=== PATIENT | female | born 1975 ===

== ENCOUNTER 2022-10-20 16:17 | Inpatient (IN) ==
[~2022-10-20 16:17] MED LIST: HEPARIN 5,000 UNIT/1 ML VIAL ONE; MIDAZOLAM 2 MG/2 ML VIAL ONE; fentaNYL 100 MCG/2 ML VIAL ONE
[2022-10-20 17:03] LABS: Basophils % 0.4 % (0.0-0.8); Eosinophils % 0.4 % (0.00-10.9); Hematocrit 32.9 VOL% (35.7-47.0); Hemoglobin 11.1 GM/DL (12.0-16.0); Immature Granulocytes % 0.5 %; Immature Granulocytes Absolute 0.04 #; Lymphocytes # 1.7 10*3/uL (1.4-4.0); Lymphocytes % 22.5 % (21.3-54.2); Mean Corpuscular HGB Conc 33.7 GM/DL (32-36); Mean Corpuscular Volume 89.4 FL (87-102); Mean Platelet Volume 9.1 FL (9.6-12.0); Monocytes # 0.7 10*3/uL (0.11-0.8); Monocytes % 9.2 % (1.7-12.7); Platelet Count 355 T/CUMM (130-400); Red Blood Count 3.68 MC/CUMM (3.8-5.5); Red Cell Distribution Width 12.2 % (9.3-17.3)
[2022-10-20 17:24] LABS: Albumin 3.4 G/DL (3.4-5.0); Bilirubin,Total 0.4 MG/DL (0.20-1.00); Calcium 7.9 MG/DL (8.5-10.1); Osmolality,Calculated 290.7 MOS/KG (273-304); Potassium 4.6 MMOL/L (3.5-5.1); Total Protein 7.5 G/DL (6.4-8.2)
[2022-10-20 17:31] LABS: High Sensitive Troponin I* 3419.6 ng/L (0-54)
[2022-10-20] MEDS ORDERED: ACETAMINOPHEN/CODEINE 300-30 MG TABLET PO PRN (17:53)
[2022-10-20] MEDS ORDERED: NITROGLYCERIN SL 0.4 MG TABLET SL PRN (17:53)
[2022-10-20] MEDS ORDERED: ONDANSETRON 4 MG/2 ML VIAL IV PRN (17:53)
[2022-10-20] MEDS ORDERED: GLUCAGON 1 MG VIAL IM PRN (17:56)
[2022-10-20] MEDS ORDERED: SODIUM CHLORIDE 0.9% 1,000 ML IV SCH (18:00)
[2022-10-20] MEDS ORDERED: DEXTROSE 10% 250 ML BAG IV PRN (18:13)
[2022-10-20] MEDS: MORPHINE 2 MG/1 ML SYRINGE IV PRN ×2 (18:24→23:51)
[2022-10-20] MEDS: INSULIN REGULAR 100 UNIT/ML SUBCUT SCH (18:25)
[2022-10-20] MEDS ORDERED: ZALEPLON 5 MG CAPSULE PO PRN (21:00)
[2022-10-20] MEDS: TICAGRELOR 90 MG TABLET PO SCH (21:24)
[2022-10-20] MEDS: ROSUVASTATIN 20 MG TABLET PO SCH (21:24)
[2022-10-20] MEDS: METOPROLOL TARTRATE 50 MG TABLET PO SCH (23:50)
[2022-10-21 05:55] LABS: Basophils % 0.3 % (0.0-0.8); Eosinophils # 0.1 10*3/uL (0.0-0.87); Eosinophils % 0.8 % (0.00-10.9); Hematocrit 30.8 VOL% (35.7-47.0); Hemoglobin 10.3 GM/DL (12.0-16.0); Immature Granulocytes % 0.8 %; Immature Granulocytes Absolute 0.06 #; Lymphocytes # 0.9 10*3/uL (1.4-4.0); Lymphocytes % 11.2 % (21.3-54.2); Mean Corpuscular HGB Conc 33.4 GM/DL (32-36); Mean Corpuscular Volume 90.3 FL (87-102); Mean Platelet Volume 9.1 FL (9.6-12.0); Monocytes # 0.9 10*3/uL (0.11-0.8); Monocytes % 11.2 % (1.7-12.7); Neutrophils % 75.7 % (38.7-73.9); Red Blood Count 3.41 MC/CUMM (3.8-5.5); Red Cell Distribution Width 12.6 % (9.3-17.3); White Blood Count 7.94 T/CUMM (4-12)
[2022-10-21 05:56] LABS: Platelet Count 278 T/CUMM (130-400)
[2022-10-21 06:07] LABS: Calcium 7.7 MG/DL (8.5-10.1); Potassium 4.4 MMOL/L (3.5-5.1); Risk Ratio 4.23
[2022-10-21] MEDS: ACETAMINOPHEN 325 MG TABLET PO PRN ×3 (06:35→23:08)
[2022-10-21] MEDS: INSULIN REGULAR 100 UNIT/ML SUBCUT SCH ×2 (06:41→16:28)
[2022-10-21] MEDS ORDERED: EPTIFIBATIDE 75 MG/100 ML BOTTLE IV ONE (06:41)
[2022-10-21] MEDS ORDERED: EPTIFIBATIDE 20,000 MCG/10 ML VIAL ONE (06:41)
[2022-10-21] MEDS ORDERED: HEPARIN/NACL 0.9% 2 UNITS/ML 2,000 UNIT/1,000 ML BAG IV ONE (06:41)
[2022-10-21] MEDS: PANTOPRAZOLE 40 MG TABLET PO SCH (08:00)
[2022-10-21] MEDS: METOPROLOL TARTRATE 50 MG TABLET PO SCH ×2 (08:01→22:27)
[2022-10-21] MEDS: TICAGRELOR 90 MG TABLET PO SCH ×2 (08:01→22:10)
[2022-10-21] MEDS: ASPIRIN EC 81 MG TABLET PO SCH (08:01)
[2022-10-21] MEDS: ENOXAPARIN 40 MG/0.4 ML SYRINGE SUBCUT SCH (08:02)
[2022-10-21] MEDS: ROSUVASTATIN 20 MG TABLET PO SCH (22:11)
[2022-10-22] MEDS: MORPHINE 2 MG/1 ML SYRINGE IV PRN (04:18)
[2022-10-22] MEDS: INSULIN REGULAR 100 UNIT/ML SUBCUT SCH (08:00)
[2022-10-22 08:39] LABS: Basophils % 0.2 % (0.0-0.8); Eosinophils # 0.2 10*3/uL (0.0-0.87); Eosinophils % 3.1 % (0.00-10.9); Hemoglobin 9.8 GM/DL (12.0-16.0); Immature Granulocytes % 0.3 %; Immature Granulocytes Absolute 0.02 #; Lymphocytes # 1.4 10*3/uL (1.4-4.0); Lymphocytes % 22.8 % (21.3-54.2); Mean Corpuscular HGB Conc 33.8 GM/DL (32-36); Mean Platelet Volume 8.9 FL (9.6-12.0); Monocytes # 0.7 10*3/uL (0.11-0.8); Monocytes % 11.3 % (1.7-12.7); Neutrophils % 62.3 % (38.7-73.9); Platelet Count 259 T/CUMM (130-400); Red Blood Count 3.26 MC/CUMM (3.8-5.5); Red Cell Distribution Width 12.5 % (9.3-17.3)
[2022-10-22 08:53] LABS: Calcium 8.3 MG/DL (8.5-10.1); Osmolality,Calculated 281.8 MOS/KG (273-304)
[2022-10-22] MEDS ORDERED: METOPROLOL TARTRATE 25 MG TABLET PO SCH (09:00)
[2022-10-22] MEDS: TICAGRELOR 90 MG TABLET PO SCH (11:58)
[2022-10-22] MEDS: PANTOPRAZOLE 40 MG TABLET PO SCH (11:58)
[2022-10-22] MEDS: ASPIRIN EC 81 MG TABLET PO SCH (11:58)
[2022-10-22] MEDS: ENOXAPARIN 40 MG/0.4 ML SYRINGE SUBCUT SCH (11:58)
[2022-10-22 13:58] VITALS: BP 124/75
== END 2022-10-22 14:02 | disposition home or self-care (01) | DRG 247 ==
LOC: N.CL 16:17 → N.ICU 17:50 → N.TELES 10-21 15:27
PROVIDERS: ADMIT Internal Medicine Cardiovascular Disease; ATTEND Internal Medicine Cardiovascular Disease
PROC: CLCCHCL (ICD-10-PCS; 2022-10-20 16:30)